=== PATIENT | male | born 1950 | race Caucasian/White ===

== ENCOUNTER 2016-10-12 11:55 | Day surgery (SDC) | payer BC ==
[~2016-10-12] VITALS: Ht 172.7 cm; Wt 83.6 kg
[2016-10-12] VITALS (8 sets, daily range): BP systolic 92–131; BP diastolic 68–81; PULSE 59–91; TEMP 97.9
[2016-10-12 12:58] LABS: HEMATOCRIT 46.1 % (42.0-52.0); HEMOGLOBIN 15.3 g/dl (13.5-18.0); MEAN CELL VOLUME 92 fl (80.0-100.0); MEAN CORPUSCULAR HEMOGLOBIN 31 pg (27.0-31.0); MEAN CORPUSCULAR HGB CONC 33 g/dl (33.0-37.0); MEAN PLATELET VOLUME 10.6 fl (7.4-10.4); PLATELET COUNT 106 K/mm3 (130-400); RED BLOOD COUNT 5.02 M/mm3 (4.20-5.60); REDCELL DISTRIBUTION WIDTH-CV 12.5 % (11.5-14.5); WHITE BLOOD COUNT 6.9 K/mm3 (4.8-10.8)
[2016-10-12 13:04] LABS: INR 1.1 (0.8-3.0); PROTHROMBIN TIME 12.3 SECONDS (9.7-12.8)
[2016-10-12 13:23] LABS: CREATININE, serum 1.04 mg/dL (0.66-1.25); POTASSIUM 4.3 mmol/L (3.4-5.0)
[2016-10-12] MEDS ORDERED: ASPIRIN 81M81 MG/TA2 PO (13:55)
[2016-10-12] MEDS ORDERED: LOPRESSOR 225 MG/TAB PO (13:56)
[2016-10-12] MEDS ORDERED: NIASPAN1000 MG PO (13:57)
[2016-10-12] MEDS ORDERED: ZOCOR 40MG40 MG PO (13:57)
== END 2016-10-12 19:45 | disposition home or self-care (01) ==
LOC: COL.CAR 11:55 → EDBD 11:55 → COL.CAR 12:30
PROVIDERS: Internal Medicine Interventional Cardiology
DX: I25.10 Atherosclerotic heart disease of native coronary artery without angina pectoris (principal); E78.5 Hyperlipidemia, unspecified; I25.2 Old myocardial infarction; Z95.5 Presence of coronary angioplasty implant and graft
CPT/HCPCS: C1760; J2250; J3010; Q9967